=== PATIENT | male | born 1960 | race African-American/Black ===

== ENCOUNTER 2024-04-18 22:53 | Inpatient (IN) | payer OTHER ==
[2024-04-19 01:40] LABS: BASO % 0.9 % (0-2.0); EOS % 4.8 % (0-4.5); HEMATOCRIT 35.8 % (35.4-49); LYMPH % 15.8 % (8-40); MCH 31.4 pg (25.7-33.7); MCHC 33.4 g/dl (32.0-35.9); MEAN PLT VOLUME 8.6 fl (7.5-11.1); MONO % 8.6 % (3.8-10.2); NEUT % 69.9 % (42.8-82.8); PLATELET COUNT 310 10^3/uL (134-434); RBC 3.81 M/mm3 (4.00-5.60); WHITE BLOOD COUNT 7.3 K/mm3 (4.0-10.0)
[2024-04-19 01:48] LABS: INR 1.01 (0.83-1.09); PROTHROMBIN TIME (PATIENT) 11.6 SEC (9.7-13.0)
[2024-04-19 01:51] LABS: ACTIVATED PTT 32.6 SECONDS (25.2-36.5)
[2024-04-19 01:52] LABS: POTASSIUM 5.9 mmol/L (3.5-5.1)
[2024-04-19 01:54] LABS: ALBUMIN 3.3 g/dl (3.4-5.0); BLOOD UREA NITROGEN 16.6 mg/dL (7-18); CALCIUM 9.4 mg/dL (8.5-10.1)
[2024-04-19 01:57] LABS: CREATININE 0.9 mg/dL (0.55-1.3)
[2024-04-19 01:59] LABS: BILIRUBIN,TOTAL 0.5 mg/dL (0.2-1); TOT PROT 7.3 g/dl (6.4-8.2)
[2024-04-19 02:02] LABS: N-TERMINAL BNP 548.4 pg/ml (5-125)
[2024-04-19] MEDS ORDERED: FUROSEMIDE 40 MG/4 ML INJECTABLE VIAL ONE ×4 (02:24→17:42)
[2024-04-19] MEDS: FUROSEMIDE 40 MG/4 ML INJECTABLE VIAL IVPUSH ONE ×2 (02:32→04:50)
[2024-04-19 03:13] LABS: PH,URINE 7.5 (5.0-8.0); URINE APPEARANCE CLEAR; URINE BILIRUBIN NEGATIVE (NEGATIVE); URINE COLOR YELLOW; URINE GLUCOSE (UA) NEGATIVE (NEGATIVE); URINE KETONE NEGATIVE (NEGATIVE); URINE LEUK ESTERASE NEGATIVE (NEGATIVE); URINE NITRITE NEGATIVE (NEGATIVE); URINE PROTEIN NEGATIVE (NEGATIVE); URINE UROBILINOGEN 0.2 mg/dL (0.2-1.0)
[2024-04-19] MEDS: ACETAMINOPHEN 1000 MG/100 ML BAG IVPB ONE (07:09)
[2024-04-19 07:17] LABS: POTASSIUM 4.2 mmol/L (3.5-5.1)
[2024-04-19 07:19] LABS: CALCIUM 9.2 mg/dL (8.5-10.1)
[2024-04-19 07:20] LABS: ALBUMIN 3.3 g/dl (3.4-5.0); BLOOD UREA NITROGEN 15.1 mg/dL (7-18)
[2024-04-19 07:23] LABS: CREATININE 0.9 mg/dL (0.55-1.3)
[2024-04-19 07:24] LABS: BILIRUBIN,TOTAL 0.5 mg/dL (0.2-1); TOT PROT 6.7 g/dl (6.4-8.2)
[2024-04-19] MEDS: FUROSEMIDE 40 MG/4 ML INJECTABLE VIAL IVPUSH SCH (08:00)
[2024-04-19 08:28] LABS: PHOSPHOROUS 5.5 mg/dL (2.5-4.9)
[2024-04-19] MEDS ORDERED: PATIENT'S OWN MEDICATION (NON-FORMULARY) (Amlodipine Besylate/Benazepril [Lotrel 10-20 Mg PO SCH (10:00)
[2024-04-19] MEDS ORDERED: LISINOPRIL 20 MG TABLET ONE (10:23)
[2024-04-19] MEDS ORDERED: FOLIC ACID 1 MG TABLET (FP) ONE ×2 (10:24→11:29)
[2024-04-19] MEDS ORDERED: ENOXAPARIN NA (PORCINE) 40 MG/0.4 ML DISP.SYRIN SQ ONE (10:24)
[2024-04-19] MEDS ORDERED: LIDOCAINE 4% PATCH TP ONE (10:24)
[2024-04-19] MEDS ORDERED: amLODIPine BESYLATE 10 MG TABLET (FP) ONE (10:24)
[2024-04-19] MEDS: amLODIPine BESYLATE 10 MG TABLET (FP) PO SCH (11:21)
[2024-04-19] MEDS: LIDOCAINE 4% PATCH TP SCH ×2 (11:21)
[2024-04-19] MEDS: ENOXAPARIN NA (PORCINE) 40 MG/0.4 ML DISP.SYRIN SQ SCH (11:21)
[2024-04-19] MEDS: LISINOPRIL 20 MG TABLET PO SCH (11:22)
[2024-04-19] MEDS: FOLIC ACID 1 MG TABLET (FP) PO SCH (11:33)
[2024-04-19] MEDS ORDERED: methaDONE HCL 40 MG DISPERSABLE TABLET PO ONE (13:32)
[2024-04-19] MEDS: methaDONE HCL 40 MG DISPERSABLE TABLET PO SCH (13:37)
[2024-04-19] MEDS ORDERED: methaDONE HCL 10 MG TABLET ONE (13:59)
[2024-04-19] MEDS: methaDONE HCL 40 MG DISPERSABLE TABLET PO ONE (14:38)
[2024-04-19] MEDS: methaDONE HCL 10 MG TABLET PO ONE (14:39)
[2024-04-19 15:11] LABS: URINE BARBITURATES NEGATIVE (NEGATIVE)
[2024-04-19] MEDS ORDERED: FUROSEMIDE 40 MG TABLET (FP) ONE (17:42)
[2024-04-19 17:47] LABS: URINE AMPHETAMINES NEGATIVE (NEGATIVE); URINE BENZODIAZEPINES NEGATIVE (NEGATIVE)
[2024-04-19 17:48] LABS: COCAINE, UR NEGATIVE (NEGATIVE); OPIATES, URI NEGATIVE (NEGATIVE); PHENCYCLIDINE,URINE NEGATIVE (NEGATIVE)
[2024-04-19 17:51] LABS: METHADONE, UR POSITIVE (NEGATIVE)
[2024-04-19] MEDS ORDERED: ACETAMINOPHEN INJECTION 100 ML ONE (20:13)
[2024-04-19] MEDS: ACETAMINOPHEN 1000 MG/100 ML BAG IVPB PRN (20:23)
[2024-04-19] MEDS: LIDOCAINE PATCH REMOVAL MC SCH ×2 (21:07)
[2024-04-20 01:48] VITALS: BMI 29.0
[2024-04-20] MEDS: ACETAMINOPHEN 1000 MG/100 ML BAG IVPB ONE (01:55)
[2024-04-20] MEDS: MELATONIN 5 MG TABLETS PO ONE (01:56)
[2024-04-20] MEDS ORDERED: ACETAMINOPHEN 1000 MG/100 ML BAG IVPB ONE (02:00)
[2024-04-20 09:04] LABS: CREATININE 0.9 mg/dL (0.55-1.3)
[2024-04-20 09:05] LABS: ALBUMIN 3.2 g/dl (3.4-5.0); BILIRUBIN,TOTAL 0.6 mg/dL (0.2-1); BLOOD UREA NITROGEN 23.1 mg/dL (7-18); CALCIUM 9.4 mg/dL (8.5-10.1); TOT PROT 6.6 g/dl (6.4-8.2)
[2024-04-20 09:08] LABS: PHOSPHOROUS 5.2 mg/dL (2.5-4.9)
[2024-04-20] MEDS: methaDONE HCL 10 MG TABLET PO ONE (12:00)
[2024-04-21] MEDS: ACETAMINOPHEN 1000 MG/100 ML BAG IVPB ONE ×2 (02:15→22:50)
[2024-04-21] MEDS: methaDONE HCL 10 MG TABLET PO ONE (08:18)
[2024-04-21 08:26] LABS: HEMATOCRIT 37.9 % (35.4-49); HEMOGLOBIN 12.9 GM/dL (11.7-16.9); MCH 31.8 pg (25.7-33.7); MCHC 34.1 g/dl (32.0-35.9); MEAN CELL VOLUME 93.3 fl (80-96); MEAN PLT VOLUME 9.1 fl (7.5-11.1); PLATELET COUNT 329 10^3/uL (134-434); RBC 4.06 M/mm3 (4.00-5.60); RDW 14.4 % (11.9-15.9); WHITE BLOOD COUNT 6.2 K/mm3 (4.0-10.0)
[2024-04-21 08:40] LABS: CALCIUM 9.7 mg/dL (8.5-10.1)
[2024-04-21 08:41] LABS: ALBUMIN 3.6 g/dl (3.4-5.0); BLOOD UREA NITROGEN 25.6 mg/dL (7-18); MAGNESIUM 2.1 mg/dL (1.8-2.4)
[2024-04-21 08:45] LABS: BILIRUBIN,TOTAL 0.5 mg/dL (0.2-1)
[2024-04-21 08:46] LABS: TOT PROT 7.6 g/dl (6.4-8.2)
[2024-04-21] MEDS: ACETAMINOPHEN 325 MG TABLET (FP) PO PRN (09:12)
[2024-04-21] MEDS ORDERED: KETOROLAC TROMETHAMINE 15 MG/ML VIAL IVPUSH ONE (12:30)
[2024-04-21] MEDS: KETOROLAC TROMETHAMINE 15 MG/ML VIAL IVPUSH ONE (21:03)
[2024-04-22] MEDS: morphine SULFATE 4 MG/ML VIAL IVPUSH ONE (02:24)
[2024-04-22 08:21] LABS: CALCIUM 9.4 mg/dL (8.5-10.1)
[2024-04-22 08:22] LABS: BLOOD UREA NITROGEN 31.9 mg/dL (7-18); MAGNESIUM 2.3 mg/dL (1.8-2.4)
[2024-04-22 08:23] LABS: ALBUMIN 3.3 g/dl (3.4-5.0)
[2024-04-22 08:26] LABS: CREATININE 0.9 mg/dL (0.55-1.3)
[2024-04-22 08:27] LABS: BILIRUBIN,TOTAL 0.7 mg/dL (0.2-1); TOT PROT 6.7 g/dl (6.4-8.2)
[2024-04-22 08:31] LABS: HEMATOCRIT 36.4 % (35.4-49); HEMOGLOBIN 12.1 GM/dL (11.7-16.9); MCH 31.6 pg (25.7-33.7); MCHC 33.3 g/dl (32.0-35.9); MEAN CELL VOLUME 94.9 fl (80-96); PLATELET COUNT 305 10^3/uL (134-434); RBC 3.84 M/mm3 (4.00-5.60); RDW 14.5 % (11.9-15.9); WHITE BLOOD COUNT 5.7 K/mm3 (4.0-10.0)
[2024-04-22] MEDS: methaDONE HCL 10 MG TABLET PO ONE (09:20)
[2024-04-22] MEDS: FUROSEMIDE 40 MG TABLET (FP) PO SCH (09:21)
[2024-04-22] MEDS: MAGNESIUM HYDROX 2400MG/30ML ORAL SUSPENSION 30 ML CUP PO ONE (14:49)
[2024-04-22 17:10] VITALS: BP 118/66; PULSE 77; RESP 18; TEMP 98.4
[2024-04-22] MEDS ORDERED: ATORVASTATIN CA 20 MG TABLET (FP) PO SCH (22:00)
[2024-04-23] MEDS ORDERED: LOSARTAN POTASSIUM 50 MG TABLET PO SCH (10:00)
== END 2024-04-22 18:36 | disposition other institution (70) | DRG 194 ==
LOC: JER 22:53 → JERBED 04-19 04:54 → OBSVTOIN 04-19 05:43 → J4W 04-19 23:24
PROVIDERS: ADMIT Internal Medicine; ATTEND Internal Medicine
DX: I11.0 Hypertensive heart disease with heart failure (principal); I50.31 Acute diastolic (congestive) heart failure; E78.5 Hyperlipidemia, unspecified; E83.39 Other disorders of phosphorus metabolism; F11.20 Opioid dependence, uncomplicated; M16.0 Bilateral primary osteoarthritis of hip; Z59.00 Homelessness unspecified
CPT/HCPCS: 36415; 71045-TC-FY; 80053; 80061; 80307; 81003; 83036; 83735; 83880; 84100; 85025; 85027; 85610; 85730; 93005; 93010; 93306-TC; 93970-TC; 97116-GP; 97162-GP; 99285-25; G0378; J0131

== ENCOUNTER 2024-04-22 19:38 | Inpatient (IN) | payer OTHER ==
[2024-04-22 20:19] VITALS: BMI 26.6
[2024-04-22] MEDS ORDERED: LOPERAMIDE HCL 2 MG CAPSULE PO PRN (20:35)
[2024-04-22] MEDS ORDERED: P-EPHED 60MG/TRIPROLIDI 2.5MG TABLET PO PRN (20:35)
[2024-04-22] MEDS ORDERED: BENZONATATE 200 MG CAPSULE PO PRN (20:35)
[2024-04-22] MEDS ORDERED: guaiFENesin 600 MG TABLET.ER (FP) PO PRN (20:35)
[2024-04-22] MEDS ORDERED: NALOXONE (NARCAN) HCL 4 MG/0.1 ML SPRAY NS PRN (20:35)
[2024-04-22] MEDS ORDERED: BENZOCAINE/MENTHOL (CHLORASEPTIC ) LOZENGE MM PRN (20:35)
[2024-04-22] MEDS ORDERED: NICOTINE POLACRILEX 2 MG LOZENGE BC PRN (20:35)
[2024-04-22] MEDS ORDERED: NICOTINE POLACRILEX 2 MG GUM BUC PRN (20:35)
[2024-04-22] MEDS ORDERED: NALOXONE HCL 0.4 MG/ML VIAL IVPUSH PRN (20:35)
[2024-04-22] MEDS: ATORVASTATIN CA 20 MG TABLET (FP) PO SCH (21:50)
[2024-04-22] MEDS: THIAMINE 100 MG TABLET PO SCH (21:50)
[2024-04-22] MEDS: MELATONIN 5 MG TABLETS PO SCH (21:51)
[2024-04-23] MEDS: IBUPROFEN 600 MG TABLET (FP) PO PRN (01:31)
[2024-04-23] MEDS: FUROSEMIDE 40 MG TABLET (FP) PO SCH (10:26)
[2024-04-23] MEDS: LOSARTAN POTASSIUM 50 MG TABLET PO SCH (10:26)
[2024-04-23] MEDS: FOLIC ACID 1 MG TABLET (FP) PO SCH (10:26)
[2024-04-23] MEDS: amLODIPine BESYLATE 10 MG TABLET (FP) PO SCH (10:26)
[2024-04-23] MEDS: PRENATAL VITAMINS W/ FOLIC ACID TABLET (FP) PO SCH (10:26)
[2024-04-23] MEDS: methaDONE HCL 40 MG DISPERSABLE TABLET PO SCH (11:05)
[2024-04-23] MEDS: MAGNESIUM HYDROX 2400MG/30ML ORAL SUSPENSION 30 ML CUP PO PRN (11:06)
[2024-04-23] MEDS: methaDONE HCL 10 MG TABLET PO SCH (21:36)
[2024-04-23] MEDS: ACETAMINOPHEN 325 MG TABLET (FP) PO PRN (23:40)
[2024-04-24] MEDS: methaDONE HCL 10 MG TABLET PO SCH (21:07)
[2024-04-25] MEDS: METHOCARBAMOL 500 MG TABLET PO PRN (10:02)
[2024-04-26] MEDS: MAG HYDROX/AL HYDROX/SIMETH 30 ML UNIT-DOSE CUP PO PRN (03:29)
[2024-04-26] MEDS: LIDOCAINE 5% TOPICAL PATCH TP SCH ×2 (09:43→17:27)
[2024-04-26] MEDS: LIDOCAINE PATCH REMOVAL MC SCH ×2 (22:08)
[2024-04-27] MEDS: FUROSEMIDE 40 MG TABLET (FP) PO SCH (06:14)
[2024-04-29] MEDS: FUROSEMIDE 40 MG TABLET (FP) PO SCH (11:00)
[2024-04-29] MEDS: IBUPROFEN 400 MG TABLET (FP) PO PRN (13:21)
[2024-04-30] MEDS: OXYMETAZOLINE 0.05% NASAL SOLUTION 15 ML BOTTLE NS PRN (17:44)
[2024-05-02] MEDS: POLYETHYLENE GLYCOL (HEALTHYLAX) 3350 17 GM PACKET PO PRN (19:34)
[2024-05-03] MEDS: methaDONE HCL 10 MG TABLET PO SCH (21:49)
[2024-05-07] MEDS: FUROSEMIDE 40 MG TABLET (FP) PO SCH (13:57)
[2024-05-10 06:28] VITALS: RESP 16
[2024-05-10] MEDS: methaDONE HCL 10 MG TABLET PO SCH (08:40)
[2024-05-10] MEDS: NALOXONE (NYS OPIOID OVERDOSE PROGRAM) 4 MG/0.1 ML SPRAY NS PRN (08:48)
[2024-05-10 09:11] VITALS: BP 136/67; PULSE 89; TEMP 97
== END 2024-05-10 09:20 | disposition home or self-care (01) | DRG 772 ==
LOC: YASAS 19:38 → Y3NR 21:04 → Y3E 04-23 09:48
PROVIDERS: ADMIT Allergy & Immunology; ATTEND Psychiatry & Neurology Pain Medicine
PROC: HZ42ZZZ Group Counseling for Substance Abuse Treatment, Cognitive-Behavioral (ICD-10-PCS; principal; 2024-04-22)
DX: F11.20 Opioid dependence, uncomplicated (principal); F14.20 Cocaine dependence, uncomplicated; F17.210 Nicotine dependence, cigarettes, uncomplicated; F32.A Depression, unspecified; I10 Essential (primary) hypertension; I50.9 Heart failure, unspecified; M16.11 Unilateral primary osteoarthritis, right hip; M25.551 Pain in right hip; G89.29 Other chronic pain; R60.0 Localized edema; Z99.89 Dependence on other enabling machines and devices; Z59.00 Homelessness unspecified
CPT/HCPCS: 80305; 87811